=== PATIENT | female | born 1925 | race Caucasian/White ===

== ENCOUNTER 2016-02-22 14:26 | Inpatient (IN) | payer MEDICARE, BC ==
[~2016-02-22] VITALS: Ht 160 cm; Wt 62.6 kg
[~2016-02-22 14:26] MED LIST: CHOL100044 PO; DIVA125C PO; DONE5TAB3 PO; DONE5TAB34; ESZO2TAB30 PO; LEVO75TA7 PO; LORA0.5T PO; LOSA25TA3 PO; LOSA50TA21; MEMA10TA21; MEMA5TAB PO; METF500T4 PO; QUET25TA PO; SIMV40TA5 PO; SITA100T PO; [UNRECOGNIZED DRUG - CODE] PO
[2016-02-22 16:30] VITALS: BP 145/75
[2016-02-22] MEDS ORDERED: ONDANSETRON HCL/PF 4 MG/2 ML VIAL IVP PRN (17:30)
[2016-02-22] MEDS ORDERED: MAG HYDROX/AL HYDROX/SIMETH 30 ML UDC PO PRN (17:30)
[2016-02-22] MEDS ORDERED: ACETAMINOPHEN 325 MG TABLET PO PRN (17:30)
[2016-02-22] MEDS ORDERED: Z GUARD REMEDY 2 OZ OINT TP PRN (17:30)
[2016-02-22 17:46] LABS: ABG HCO3 25.7 mmol/L; ABG PCO2 36.9 mmHg (35.0-45.0); ABG TOTAL HEMOGLOBIN 12.6 G/dL (12.0-16.0); ALLEN TEST Pass; AaDO2 91.1 mmHg; O2Hb 90.8 % (94.0-97.0)
[2016-02-22] MEDS: ALBUTEROL FS 2.5 MG/0.5 ML VIAL.NEB NEB SCH (17:49)
[2016-02-22] MEDS: IPRATROPIUM NEB FS 0.5 MG/2.5 ML AMPUL.NEB NEB SCH (17:49)
[2016-02-22 18:00] VITALS: BP 145/75
[2016-02-22 20:00] VITALS: BP_SYST 152; BP_SYST 154; BP_DIAS 79
[2016-02-23] VITALS: BP 150/74
[2016-02-23 04:00] VITALS: BP 161/85
[2016-02-23] MEDS: PANTOPRAZOLE 40 MG TABLET.DR PO SCH (07:30)
[2016-02-23] MEDS: IPRATROPIUM NEB FS 0.5 MG/2.5 ML AMPUL.NEB NEB SCH ×6 (07:35→23:30)
[2016-02-23] MEDS: ALBUTEROL FS 2.5 MG/0.5 ML VIAL.NEB NEB SCH ×6 (07:35→23:30)
[2016-02-23 07:40] LABS: CALCIUM, SERUM 9.1 mg/dL (8.5-10.1); CREATININE 1.1 mg/dL (0.6-1.3); POTASSIUM 4.1 mmol/L (3.5-5.1)
[2016-02-23 08:00] VITALS: BP_SYST 161; BP_SYST 167; BP_DIAS 73
[2016-02-23 08:03] LABS: BASOPHILS % (AUTO) 0.1 % (0.0-2.0); DIFF TOTAL % 100 %; EOSINOPHILS % (AUTO) 0.3 % (0.0-6.0); HEMATOCRIT 38 % (33-45); HEMOGLOBIN 12.8 g/dL (11.5-14.8); LYMPHOCYTES # (AUTO) 1.2 /CMM (0.8-4.8); LYMPHOCYTES % (AUTO) 10.2 % (20.0-44.0); MEAN CORPUSCULAR HEMOGLOBIN 28 PG (26.0-33.0); MEAN CORPUSCULAR HGB CONC 34 g/dl (31.0-36.0); MEAN CORPUSCULAR VOLUME 85 fL (82-100); MONOCYTES # (AUTO) 0.8 /CMM (0.1-1.30); MONOCYTES % (AUTO) 6.9 % (2.0-12.0); NEUTROPHILS # (AUTO) 9.6 /CMM (1.8-8.9); NEUTROPHILS % (AUTO) 82.5 % (43.0-81.0); PLATELET COUNT (AUTO) 173 /CMM (150-450); RED BLOOD CELL COUNT(AUTO) 4.52 MIL/uL (4.0-5.2); WHITE BLOOD COUNT (AUTO) 11.6 K/uL (4.3-11.0)
[2016-02-23] MEDS ORDERED: IV SET PRIMARY PUMP SET 1 EA INFUS.SET MC ONE (08:36)
[2016-02-23] MEDS: IV D5/ 0.9% NACL 1,000 ML IV PRN ×2 (08:41→22:45)
[2016-02-23] MEDS: HYDROCODONE/APAP 5/325MG 1 EACH TABLET PO PRN (09:26)
[2016-02-23] MEDS: LORAZEPAM INJ 2 MG/ML VIAL IV PRN (11:40)
[2016-02-23] MEDS ORDERED: LORAZEPAM 0.5 MG TABLET PO PRN (13:30)
[2016-02-23] MEDS ORDERED: GUAIFENESIN/D-METHORPHAN HB 5 ML UDC PO PRN (13:30)
[2016-02-23] MEDS: METOPROLOL TARTRATE 25 MG TABLET PO SCH ×2 (13:38→21:06)
[2016-02-23] MEDS ORDERED: ZOLPIDEM TARTRATE 5 MG TABLET PO PRN (14:00)
[2016-02-23 16:00] VITALS: BP 126/66
[2016-02-23] MEDS ORDERED: QUETIAPINE FUMARATE 25 MG TABLET PO PRN (16:30)
[2016-02-23] MEDS: METFORMIN 500 MG TABLET PO SCH (16:44)
[2016-02-23] MEDS: QUETIAPINE FUMARATE 25 MG TABLET PO SCH (16:44)
[2016-02-23] MEDS: MEMANTINE HCL 5 MG TABLET PO SCH (16:44)
[2016-02-23 20:00] VITALS: BP 140/70
[2016-02-23] MEDS: DIVALPROEX SODIUM 125 MG CAP.SPRINK PO SCH (21:05)
[2016-02-23] MEDS ORDERED: Medication Not On Formulary EA (Eszopiclone 2 MG) PO SCH (22:00)
[2016-02-23 23:00] VITALS: BP 139/74
[2016-02-24] MEDS: IPRATROPIUM NEB FS 0.5 MG/2.5 ML AMPUL.NEB NEB SCH ×6 (03:52→23:20)
[2016-02-24] MEDS: ALBUTEROL FS 2.5 MG/0.5 ML VIAL.NEB NEB SCH ×6 (03:52→23:20)
[2016-02-24 06:50] LABS: BASOPHILS % (AUTO) 0.8 % (0.0-2.0); DIFF TOTAL % 100 %; EOSINOPHILS # (AUTO) 0.2 /CMM (0.0-0.7); EOSINOPHILS % (AUTO) 3.2 % (0.0-6.0); HEMATOCRIT 37 % (33-45); HEMOGLOBIN 12.5 g/dL (11.5-14.8); LYMPHOCYTES # (AUTO) 1.5 /CMM (0.8-4.8); LYMPHOCYTES % (AUTO) 24.3 % (20.0-44.0); MEAN CORPUSCULAR HEMOGLOBIN 28 PG (26.0-33.0); MEAN CORPUSCULAR HGB CONC 34 g/dl (31.0-36.0); MEAN CORPUSCULAR VOLUME 85 fL (82-100); MONOCYTES # (AUTO) 0.6 /CMM (0.1-1.30); MONOCYTES % (AUTO) 9.8 % (2.0-12.0); NEUTROPHILS # (AUTO) 3.9 /CMM (1.8-8.9); NEUTROPHILS % (AUTO) 61.9 % (43.0-81.0); PLATELET COUNT (AUTO) 165 /CMM (150-450); RED BLOOD CELL COUNT(AUTO) 4.41 MIL/uL (4.0-5.2); WHITE BLOOD COUNT (AUTO) 6.3 K/uL (4.3-11.0)
[2016-02-24 07:03] LABS: CALCIUM, SERUM 8.6 mg/dL (8.5-10.1); CREATININE 1.2 mg/dL (0.6-1.3); PHOSPHORUS 3.5 mg/dL (2.5-4.9); POTASSIUM 3.5 mmol/L (3.5-5.1)
[2016-02-24 08:00] VITALS: BP 138/72
[2016-02-24] MEDS: MEMANTINE HCL 5 MG TABLET PO SCH ×2 (08:54→16:06)
[2016-02-24] MEDS: QUETIAPINE FUMARATE 25 MG TABLET PO SCH ×2 (08:54→16:06)
[2016-02-24] MEDS: SIMVASTATIN 40 MG TABLET PO SCH (08:55)
[2016-02-24] MEDS: CHOLECALCIFEROL 1,000 UNIT TABLET (VIT D3) PO SCH (08:55)
[2016-02-24] MEDS: SITAGLIPTIN PHOSPHATE 50 MG TABLET PO SCH (08:55)
[2016-02-24] MEDS: METFORMIN 500 MG TABLET PO SCH ×2 (08:55→16:06)
[2016-02-24] MEDS: LEVOTHYROXINE SODIUM 75 MCG TABLET PO SCH (08:56)
[2016-02-24] MEDS: LOSARTAN POTASSIUM 25 MG TABLET PO SCH (08:56)
[2016-02-24] MEDS: METOPROLOL TARTRATE 25 MG TABLET PO SCH ×2 (08:57→22:01)
[2016-02-24] MEDS: DIVALPROEX SODIUM 125 MG CAP.SPRINK PO SCH ×2 (08:57→22:01)
[2016-02-24] MEDS: PANTOPRAZOLE 40 MG TABLET.DR PO SCH (08:58)
[2016-02-24] MEDS: DONEPEZIL 5 MG TABLET PO SCH (08:58)
[2016-02-24] MEDS ORDERED: SITAGLIPTIN PHOSPHATE 50 MG TABLET PO SCH (09:00)
[2016-02-24] MEDS: IV D5/ 0.9% NACL 1,000 ML IV PRN (10:47)
[2016-02-24 20:00] VITALS: BP 161/90
[2016-02-24 22:35] VITALS: BP 161/90
[2016-02-25] MEDS: IPRATROPIUM NEB FS 0.5 MG/2.5 ML AMPUL.NEB NEB SCH ×6 (03:32→23:23)
[2016-02-25] MEDS: ALBUTEROL FS 2.5 MG/0.5 ML VIAL.NEB NEB SCH ×6 (03:32→23:23)
[2016-02-25 08:00] VITALS: BP 142/73
[2016-02-25] MEDS: LEVOTHYROXINE SODIUM 75 MCG TABLET PO SCH (09:11)
[2016-02-25] MEDS: METFORMIN 500 MG TABLET PO SCH ×2 (09:11→16:54)
[2016-02-25] MEDS: PANTOPRAZOLE 40 MG TABLET.DR PO SCH (09:11)
[2016-02-25] MEDS: MEMANTINE HCL 5 MG TABLET PO SCH ×2 (09:11→16:54)
[2016-02-25] MEDS: DIVALPROEX SODIUM 125 MG CAP.SPRINK PO SCH ×2 (09:11→20:42)
[2016-02-25] MEDS: SITAGLIPTIN PHOSPHATE 50 MG TABLET PO SCH (09:11)
[2016-02-25] MEDS: DONEPEZIL 5 MG TABLET PO SCH (09:11)
[2016-02-25] MEDS: QUETIAPINE FUMARATE 25 MG TABLET PO SCH ×2 (09:12→16:54)
[2016-02-25] MEDS: CHOLECALCIFEROL 1,000 UNIT TABLET (VIT D3) PO SCH (09:12)
[2016-02-25] MEDS: LOSARTAN POTASSIUM 25 MG TABLET PO SCH (09:13)
[2016-02-25] MEDS: METOPROLOL TARTRATE 25 MG TABLET PO SCH ×2 (09:13→20:48)
[2016-02-25] MEDS: SIMVASTATIN 40 MG TABLET PO SCH (09:14)
[2016-02-25] MEDS: LORAZEPAM INJ 2 MG/ML VIAL IV PRN ×2 (13:37→23:25)
[2016-02-25] MEDS: HYDROCODONE/APAP 5/325MG 1 EACH TABLET PO PRN (13:43)
[2016-02-25] MEDS ORDERED: IV SET PRIMARY PUMP SET 1 EA INFUS.SET MC ONE (15:03)
[2016-02-25] MEDS: IV D5/ 0.9% NACL 1,000 ML IV PRN (15:28)
[2016-02-25 16:00] VITALS: BP 133/80
[2016-02-25 21:00] VITALS: BP 125/58
[2016-02-26] MEDS: IPRATROPIUM NEB FS 0.5 MG/2.5 ML AMPUL.NEB NEB SCH ×6 (03:18→23:28)
[2016-02-26] MEDS: ALBUTEROL FS 2.5 MG/0.5 ML VIAL.NEB NEB SCH ×6 (03:18→23:29)
[2016-02-26] MEDS: IV D5/ 0.9% NACL 1,000 ML IV PRN (05:20)
[2016-02-26] MEDS: METFORMIN 500 MG TABLET PO SCH ×2 (08:10→16:20)
[2016-02-26] MEDS: QUETIAPINE FUMARATE 25 MG TABLET PO SCH ×2 (08:10→16:20)
[2016-02-26] MEDS: SIMVASTATIN 40 MG TABLET PO SCH (08:10)
[2016-02-26] MEDS: PANTOPRAZOLE 40 MG TABLET.DR PO SCH (08:10)
[2016-02-26] MEDS: SITAGLIPTIN PHOSPHATE 50 MG TABLET PO SCH (08:10)
[2016-02-26] MEDS: DIVALPROEX SODIUM 125 MG CAP.SPRINK PO SCH ×2 (08:10→20:36)
[2016-02-26] MEDS: MEMANTINE HCL 5 MG TABLET PO SCH ×2 (08:10→16:20)
[2016-02-26] MEDS: CHOLECALCIFEROL 1,000 UNIT TABLET (VIT D3) PO SCH (08:11)
[2016-02-26] MEDS: LEVOTHYROXINE SODIUM 75 MCG TABLET PO SCH (08:11)
[2016-02-26] MEDS: DONEPEZIL 5 MG TABLET PO SCH (08:11)
[2016-02-26] MEDS: METOPROLOL TARTRATE 25 MG TABLET PO SCH ×2 (08:12→20:37)
[2016-02-26] MEDS: LOSARTAN POTASSIUM 25 MG TABLET PO SCH (08:12)
[2016-02-26 08:19] LABS: BASOPHILS % (AUTO) 0.4 % (0.0-2.0); DIFF TOTAL % 100 %; EOSINOPHILS # (AUTO) 0.2 /CMM (0.0-0.7); EOSINOPHILS % (AUTO) 3.2 % (0.0-6.0); HEMATOCRIT 36 % (33-45); HEMOGLOBIN 11.9 g/dL (11.5-14.8); LYMPHOCYTES # (AUTO) 1.4 /CMM (0.8-4.8); LYMPHOCYTES % (AUTO) 21.1 % (20.0-44.0); MEAN CORPUSCULAR HEMOGLOBIN 28 PG (26.0-33.0); MEAN CORPUSCULAR HGB CONC 33 g/dl (31.0-36.0); MEAN CORPUSCULAR VOLUME 85 fL (82-100); MONOCYTES # (AUTO) 0.6 /CMM (0.1-1.30); MONOCYTES % (AUTO) 9.6 % (2.0-12.0); NEUTROPHILS # (AUTO) 4.2 /CMM (1.8-8.9); NEUTROPHILS % (AUTO) 65.7 % (43.0-81.0); PLATELET COUNT (AUTO) 169 /CMM (150-450); RED BLOOD CELL COUNT(AUTO) 4.26 MIL/uL (4.0-5.2); WHITE BLOOD COUNT (AUTO) 6.4 K/uL (4.3-11.0)
[2016-02-26 08:52] LABS: CALCIUM, SERUM 8.3 mg/dL (8.5-10.1); CREATININE 1.1 mg/dL (0.6-1.3); PHOSPHORUS 3.6 mg/dL (2.5-4.9); POTASSIUM 3.6 mmol/L (3.5-5.1)
[2016-02-26 09:27] VITALS: BP 125/78
[2016-02-26] MEDS: IV D5W 1,000 ML IV SCH (10:56)
[2016-02-26 17:47] VITALS: BP 132/57
[2016-02-26 20:00] VITALS: BP 147/85
[2016-02-26] MEDS: LORAZEPAM INJ 2 MG/ML VIAL IV PRN (22:22)
[2016-02-27] MEDS: IV D5W 1,000 ML IV SCH ×2 (00:16→11:58)
[2016-02-27] MEDS: IPRATROPIUM NEB FS 0.5 MG/2.5 ML AMPUL.NEB NEB SCH ×5 (03:18→20:35)
[2016-02-27] MEDS: ALBUTEROL FS 2.5 MG/0.5 ML VIAL.NEB NEB SCH ×5 (03:18→20:35)
[2016-02-27 08:00] VITALS: BP 150/77
[2016-02-27] MEDS: PANTOPRAZOLE 40 MG TABLET.DR PO SCH (08:15)
[2016-02-27] MEDS: CHOLECALCIFEROL 1,000 UNIT TABLET (VIT D3) PO SCH (08:15)
[2016-02-27] MEDS: DONEPEZIL 5 MG TABLET PO SCH (08:15)
[2016-02-27] MEDS: LOSARTAN POTASSIUM 25 MG TABLET PO SCH (08:15)
[2016-02-27] MEDS: LEVOTHYROXINE SODIUM 75 MCG TABLET PO SCH (08:15)
[2016-02-27] MEDS: DIVALPROEX SODIUM 125 MG CAP.SPRINK PO SCH ×2 (08:16→21:36)
[2016-02-27] MEDS: SITAGLIPTIN PHOSPHATE 50 MG TABLET PO SCH (08:16)
[2016-02-27] MEDS: METFORMIN 500 MG TABLET PO SCH ×2 (08:16→17:10)
[2016-02-27] MEDS: MEMANTINE HCL 5 MG TABLET PO SCH ×2 (08:17→17:10)
[2016-02-27] MEDS: SIMVASTATIN 40 MG TABLET PO SCH (08:17)
[2016-02-27] MEDS: METOPROLOL TARTRATE 25 MG TABLET PO SCH ×2 (08:17→21:37)
[2016-02-27] MEDS: QUETIAPINE FUMARATE 25 MG TABLET PO SCH ×2 (08:17→17:10)
[2016-02-27 09:01] LABS: BASOPHILS # (AUTO) 0.1 /CMM (0.0-0.2); BASOPHILS % (AUTO) 0.5 % (0.0-2.0); DIFF TOTAL % 100 %; EOSINOPHILS # (AUTO) 0.3 /CMM (0.0-0.7); EOSINOPHILS % (AUTO) 2.7 % (0.0-6.0); HEMATOCRIT 42 % (33-45); HEMOGLOBIN 13.9 g/dL (11.5-14.8); LYMPHOCYTES # (AUTO) 1.8 /CMM (0.8-4.8); LYMPHOCYTES % (AUTO) 15.8 % (20.0-44.0); MEAN CORPUSCULAR HEMOGLOBIN 28 PG (26.0-33.0); MEAN CORPUSCULAR HGB CONC 33 g/dl (31.0-36.0); MEAN CORPUSCULAR VOLUME 84 fL (82-100); MONOCYTES # (AUTO) 0.8 /CMM (0.1-1.30); MONOCYTES % (AUTO) 7.1 % (2.0-12.0); NEUTROPHILS # (AUTO) 8.3 /CMM (1.8-8.9); NEUTROPHILS % (AUTO) 73.9 % (43.0-81.0); PLATELET COUNT (AUTO) 137 /CMM (150-450); RED BLOOD CELL COUNT(AUTO) 5.02 MIL/uL (4.0-5.2); WHITE BLOOD COUNT (AUTO) 11.2 K/uL (4.3-11.0)
[2016-02-27 10:26] LABS: CALCIUM, SERUM 8.1 mg/dL (8.5-10.1); CREATININE 0.9 mg/dL (0.6-1.3); POTASSIUM 3.5 mmol/L (3.5-5.1)
[2016-02-27] MEDS ORDERED: SECONDARY IV SET 1 EA INFUS.SET MC ONE (13:03)
[2016-02-27] MEDS: Magnesium 1GM/D5W 100ML PREMIX 100 ML IV SCH ×2 (13:10→14:03)
[2016-02-27 20:00] VITALS: BP 141/53
[2016-02-28] MEDS: ALBUTEROL FS 2.5 MG/0.5 ML VIAL.NEB NEB SCH ×4 (00:15→11:29)
[2016-02-28] MEDS: IPRATROPIUM NEB FS 0.5 MG/2.5 ML AMPUL.NEB NEB SCH ×4 (00:15→11:29)
[2016-02-28] MEDS: PANTOPRAZOLE 40 MG TABLET.DR PO SCH (07:47)
[2016-02-28] MEDS: LEVOTHYROXINE SODIUM 75 MCG TABLET PO SCH (07:47)
[2016-02-28 08:00] VITALS: BP 124/60
[2016-02-28] MEDS: QUETIAPINE FUMARATE 25 MG TABLET PO SCH (08:38)
[2016-02-28 08:39] VITALS: BP 124/60
[2016-02-28] MEDS: SITAGLIPTIN PHOSPHATE 50 MG TABLET PO SCH (08:39)
[2016-02-28] MEDS: METOPROLOL TARTRATE 25 MG TABLET PO SCH (08:39)
[2016-02-28] MEDS: MEMANTINE HCL 5 MG TABLET PO SCH (08:39)
[2016-02-28] MEDS: SIMVASTATIN 40 MG TABLET PO SCH (08:39)
[2016-02-28] MEDS: DIVALPROEX SODIUM 125 MG CAP.SPRINK PO SCH (08:39)
[2016-02-28] MEDS: DONEPEZIL 5 MG TABLET PO SCH (08:39)
[2016-02-28] MEDS: LOSARTAN POTASSIUM 25 MG TABLET PO SCH (08:39)
[2016-02-28] MEDS: CHOLECALCIFEROL 1,000 UNIT TABLET (VIT D3) PO SCH (08:39)
[2016-02-28] MEDS: METFORMIN 500 MG TABLET PO SCH (08:39)
[2016-02-28] MEDS ORDERED: POTASSIUM CHLORIDE 20 MEQ TAB.PRT.SR PO ONE (13:00)
[2016-02-28 13:46] LABS: BASOPHILS # (AUTO) 0.1 /CMM (0.0-0.2); BASOPHILS % (AUTO) 0.6 % (0.0-2.0); DIFF TOTAL % 100 %; EOSINOPHILS # (AUTO) 0.1 /CMM (0.0-0.7); EOSINOPHILS % (AUTO) 1.3 % (0.0-6.0); HEMATOCRIT 35 % (33-45); HEMOGLOBIN 11.6 g/dL (11.5-14.8); LYMPHOCYTES # (AUTO) 1.1 /CMM (0.8-4.8); LYMPHOCYTES % (AUTO) 14.2 % (20.0-44.0); MEAN CORPUSCULAR HEMOGLOBIN 28 PG (26.0-33.0); MEAN CORPUSCULAR HGB CONC 33 g/dl (31.0-36.0); MEAN CORPUSCULAR VOLUME 84 fL (82-100); MONOCYTES # (AUTO) 0.6 /CMM (0.1-1.30); MONOCYTES % (AUTO) 7.5 % (2.0-12.0); NEUTROPHILS # (AUTO) 6.1 /CMM (1.8-8.9); NEUTROPHILS % (AUTO) 76.4 % (43.0-81.0); PLATELET COUNT (AUTO) 180 /CMM (150-450); RED BLOOD CELL COUNT(AUTO) 4.13 MIL/uL (4.0-5.2)
[2016-02-28 14:14] LABS: CALCIUM, SERUM 8.4 mg/dL (8.5-10.1); CREATININE 1.1 mg/dL (0.6-1.3); PHOSPHORUS 3.5 mg/dL (2.5-4.9); POTASSIUM 3.6 mmol/L (3.5-5.1)
== END 2016-02-28 15:20 | DRG 682 ==
LOC: MEDSG1 14:26 → TELE1 15:34 → MEDSG1 02-23 08:52 → MEDSG2 02-23 23:00
PROVIDERS: ADMIT Nurse Practitioner Acute Care; ATTEND Nurse Practitioner Acute Care
PROC: 05H533Z Insertion of Infusion Device into Right Subclavian Vein, Percutaneous Approach (ICD-10-PCS; principal; 2016-02-25)
DX: N17.0 Acute kidney failure with tubular necrosis (principal); J96.01 Acute respiratory failure with hypoxia; N39.0 Urinary tract infection, site not specified; E46 Unspecified protein-calorie malnutrition; E87.0 Hyperosmolality and hypernatremia; F03.91 Unspecified dementia, unspecified severity, with behavioral disturbance; K21.9 Gastro-esophageal reflux disease without esophagitis; B95.2 Enterococcus as the cause of diseases classified elsewhere; E86.0 Dehydration; E03.9 Hypothyroidism, unspecified; I10 Essential (primary) hypertension; E78.5 Hyperlipidemia, unspecified; E11.9 Type 2 diabetes mellitus without complications; F41.9 Anxiety disorder, unspecified; F32.9 Major depressive disorder, single episode, unspecified; Z86.73 Personal history of transient ischemic attack (TIA), and cerebral infarction without residual deficits; Z73.6 Limitation of activities due to disability; Z68.24 Body mass index [BMI] 24.0-24.9, adult; F39 Unspecified mood [affective] disorder; F29 Unspecified psychosis not due to a substance or known physiological condition
CPT/HCPCS: 36415; 36600; 72100-TC; 80048-TC; 83735-TC; 84100-TC; 85025-TC; 92611-TC; 94799-TC; 97001-TC; 97110-TC; 97116-TC; 97530-TC; J2060; J3475; J7042; J7070; Z7610